=== PATIENT | female | born 1980 | race Caucasian/White ===

== ENCOUNTER → 2019-05-15 | Outpatient (CLI) | payer SELFPAY ==
--- NOTE | 2019-05-15 10:00 | MRI_ITS ---
HISTORY: MRV PELVIS-? PELVIC CONGESTION SYNDROME Bilat vericose veins, 3 prior c-sections ADDITIONAL HISTORY: None provided. COMPARISON: None TECHNIQUE: MRA of the pelvis was performed without and with 13 mL Dotarem IV contrast. Three-D reconstructed images were reviewed. FINDINGS: Evaluation somewhat limited by motion artifact. VASCULATURE: Arterial phase images show unremarkable appearance of the aorta, iliac arteries and proximal femoral arteries. No evidence of arteriovenous malformation. There is some mild narrowing of the left common iliac vein as it crosses underneath the right common iliac artery. Prominent superficial veins are noted in the labia bilaterally extending toward the right groin. Adnexal veins are minimally prominent. BLADDER: Unremarkable. REPRODUCTIVE ORGANS: Partial uterine septation versus arcuate uterus, reference coronal images 13 through 14 of series 8. Right ovarian dominant follicle measuring 18 mm on series 5 image 17. Unremarkable left adnexum. Tampon in vagina. VISUALIZED BOWEL: Moderate to large amount of stool in the visualized colon. PERITONEUM: Small amount of pelvic free fluid. BONES: Unremarkable. SOFT TISSUES: Unremarkable. MRI/MRA Pelvis W and W/O IMPRESSION: 1. Prominent labial and right groin veins with minimal dominance of the adnexal veins. Findings are nonspecific and not definitive for pelvic congestion syndrome. Dynamic ultrasound may be helpful for further evaluation. 2. Mild narrowing of the left common iliac vein. at 0136 Reported and signed by: Dana Carpenter MD Electronically Signed: Dana Carpenter MD at 1:35 EDT Tel , Service support ,
== END | disposition home or self-care (01) ==
LOC: MRI 09:15
PROVIDERS: Family Provider Family Medicine; PCP Family Medicine; Referring Provider Surgery; Visit Provider Surgery
DX: I87.309 Chronic venous hypertension (idiopathic) without complications of unspecified lower extremity (principal); I86.3 Vulval varices
CPT/HCPCS: 72198; A9575; C8920

== ENCOUNTER → 2020-09-11 16:57 | Outpatient (CLI) | payer SELFPAY | PROVIDERS: PCP Family Medicine; Referring Provider Surgery; Visit Provider Surgery | DX: Z01.812 Encounter for preprocedural laboratory examination (principal) | CPT/HCPCS: 87635; C9803; U0005; U0003 ==

== ENCOUNTER 2021-10-21 08:05 | Outpatient (CLI) | payer SELFPAY ==
--- NOTE | 2021-10-21 08:14 | BI_ITS ---
MAMMOGRAPHY - BILATERAL SCREENING REASON FOR EXAM: Female, 41 years old. Routine annual screening examination. PERTINENT HISTORY: Non-contributory. TECHNIQUE: Digital bilateral breast danielle (3D mammographic acquisition) in the CC and MLO projections. 2-D mediolateral oblique (MLO) and craniocaudad (CC) views of both breasts were obtained. CAD: Full Field Digital Mammography with Computer Added Detection was performed. COMPARISON: None. Baseline examination. FINDINGS: Breast Composition: The breasts are extremely dense, which lowers the sensitivity of mammography. There are no dominant masses or suspicious calcifications. No other significant abnormalities are identified. BI/SCRN MAMM (CAD)W/DANIELLE BILAT IMPRESSION: Negative screening mammogram. Yearly followup mammogram recommended. (A) ASSESSMENT CATEGORY: BIRADS Category 1: Negative. A letter regarding these results will be sent to the patient by the facility within 30 days. Approximately 10% of breast cancers are not detected by mammography. A normal mammogram should not delay biopsy of a clinically suspicious abnormality. [id number] Electronically Signed: Angelo Schroeder MD at 9:18 EDT ,
== END 2021-10-21 23:59 | disposition home or self-care (01) ==
LOC: OPBI 08:11
PROVIDERS: PCP Family Medicine; Visit Provider Family Medicine
DX: Z12.31 Encounter for screening mammogram for malignant neoplasm of breast (principal)
CPT/HCPCS: 77063; 77067